=== PATIENT | female | born 1995 | race Caucasian/White ===

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

== ENCOUNTER 2017-01-01 22:30 | Outpatient (CLI) | payer MEDICAID ==
[2017-01-25] MEDS ORDERED: MOTRIN-DPS800 MG PO (11:46)
[2017-01-25] MEDS ORDERED: LEVOTHYROXINE112 MCG PO (11:46)
[2017-01-25] MEDS ORDERED: NIPPLECREAM TP (11:46)
[2017-01-25] MEDS ORDERED: PRENATAL VIT1 TAB PO (11:46)
== END 2017-01-01 23:50 | disposition home or self-care (01) ==
LOC: BC 22:30 → 2LDRP 22:30 → BC 23:50
DX: O99.89 Other specified diseases and conditions complicating pregnancy, childbirth and the puerperium (principal); R10.2 Pelvic and perineal pain; Z3A.37 37 weeks gestation of pregnancy

== ENCOUNTER 2017-01-06 13:15 | Outpatient (CLI) | payer MEDICAID ==
[2017-01-25] MEDS ORDERED: NIPPLECREAM TP (11:46)
[2017-01-25] MEDS ORDERED: PRENATAL VIT1 TAB PO (11:46)
[2017-01-25] MEDS ORDERED: LEVOTHYROXINE112 MCG PO (11:46)
[2017-01-25] MEDS ORDERED: MOTRIN-DPS800 MG PO (11:46)
== END 2017-01-06 14:20 | disposition home or self-care (01) ==
LOC: BC 13:15 → 2LDRP 13:15 → BC 14:20
DX: O47.1 False labor at or after 37 completed weeks of gestation (principal); Z3A.38 38 weeks gestation of pregnancy

== ENCOUNTER 2017-01-14 01:00 | Outpatient (CLI) | payer MEDICAID ==
[2017-01-25] MEDS ORDERED: MOTRIN-DPS800 MG PO (11:46)
[2017-01-25] MEDS ORDERED: NIPPLECREAM TP (11:46)
[2017-01-25] MEDS ORDERED: LEVOTHYROXINE112 MCG PO (11:46)
[2017-01-25] MEDS ORDERED: PRENATAL VIT1 TAB PO (11:46)
== END 2017-01-14 02:10 | disposition home or self-care (01) ==
LOC: 2LDRP 01:00 → BC 01:00 → SSS 01-18 15:50 → BC 01-18 16:51
DX: O99.89 Other specified diseases and conditions complicating pregnancy, childbirth and the puerperium (principal); R51 Headache; Z3A.39 39 weeks gestation of pregnancy

== ENCOUNTER 2017-01-21 18:30 | Inpatient (IN) | payer MEDICAID ==
[~2017-01-21] VITALS: Ht 157.5 cm; Wt 85.7 kg
--- NOTE | ~2017-01-21 | HP ---
ADMIT: 01/21/2017 RM/LOC: 221 [facility] MR#: [id number] [address] [place], [place] [address] RACHEL SPRAGUE [address] [place] [address] History and Physical SEX: F AGE: 21 : 1995 DATE OF SERVICE: CHIEF COMPLAINT: Induction of labor for post dates. HISTORY OF PRESENT ILLNESS: Rachel is a very pleasant, 21-year-old, 1, para 0 with an intrauterine at 40 weeks and 4/7 days, presented to Labor and Delivery last night for complaints of induction of labor for post dates. Her has been followed from approximately 10 weeks, and she has had good care and followup. Her has been complicated with hypothyroidism that has been well treated, as well as positive chlamydia infection early on in the post treatment and post check for cures. There have been no other major events with care. The patient presented last night for induction of labor. Misoprostol x 2 has been placed. The patient had spontaneous rupture of membranes at approximately 0130 hours this morning. Clear fluid noted. The patient has just received her epidural. She is comfortable. She has no complaints at this time. PAST MEDICAL HISTORY: Includes: 1. Hypothyroidism. 2. History of kidney stones. 3. History of chlamydia post treatment. PAST SURGICAL HISTORY: Two eye surgeries for cataracts at age 10 or 12. LABORATORY DATA: Blood type A positive, antibody negative, serology nonreactive, rubella immune, GBS negative, HIV negative, GC/Chlamydia negative, hepatitis B surface antigen negative. MEDICATIONS: Include: 1. vitamin. 2. Levothyroxine 112 mcg daily. ALLERGIES: NO KNOWN DRUG ALLERGIES. FAMILY HISTORY: There is asthma, diabetes. SOCIAL HISTORY: Noncontributory. No alcohol, drug, or tobacco use. REVIEW OF SYSTEMS: A 10-point review of systems obtained, per HPI otherwise negative. PHYSICAL EXAMINATION: VITAL SIGNS: Blood pressure 111/73, pulse 100, respirations 16, temperature 97.2. GENERAL: Alert and oriented x3. Appears comfortable. HEENT: Pupils equal, round, and reactive. Extraocular muscles intact. Throat clear. Trachea midline. HEART: Regular rate and rhythm. ADMIT: 01/21/2017 RM/LOC: 221 [facility] MR#: [id number] [address] [facility] [address] [place], [place] [address] RACHEL SPRAGUE M [address] [facility] [address] [place] [address] History and Physical SEX: F AGE: 21 : 1995 LUNGS: Clear to auscultation. ABDOMEN: Gravid. Soft. EXTREMITIES: Without any significant edema. Tocometer shows contractions every 1 to 3 minutes. Cervical check showed 2.5 cm, 70% effaced, -1 station. heart tones category 1. IUPC placed. Contractions appear adequate. LABORATORY DATA: Urine protein and glucose were negative. Hemoglobin was 13.5, and platelets were 216. ASSESSMENT: This is a 21-year-old, 1, para 0, with; 1. Intrauterine at 40 weeks and 4/7 days. 2. Induction of labor for post dates. 3. Hypothyroidism. 4. Group B strep negative. 5. History of chlamydia infection early , post treatment and post test for cure. PLAN: IUPC is placed. The patient currently on low-dose Pitocin protocol. Contractions adequate. We will continue with close monitoring and active management of labor. The patient is aware of all the risks, benefits, and alternatives with induction of labor including increased risk for and she was agreeable for this. Raheem Thornton MD/ alexx JOB #: [id number] CC: Raheem Thornton MD, Attending Physician Raheem Thornton MD, Family Physician
--- NOTE | ~2017-01-21 | OR ---
ADMIT: 01/21/2017 RM/LOC: 221 [facility] MR#: [id number] [address] [facility] [address] [place], [place] [address] ORIN SPRAGUE [address] [place] [address] Operative/Delivery Room Report SEX: F AGE: 21 : 1995 SURGERY DATE: 01/22/2017 SURGEON: Raheem Thornton MD PREOPERATIVE DIAGNOSES: 1. Intrauterine at 40 weeks and 4/7 days. 2. Induction of labor for post dates. 3. GBS negative. 4. Hypothyroidism, well treated. 5. History of chlamydia post treatment and care. POSTOPERATIVE DIAGNOSES: 1. Status post spontaneous vaginal delivery. 2. Status post right vaginal sidewall laceration repair. 3. Intrauterine at 40 weeks and 4/7 days. 4. Induction of labor for post dates. 5. GBS negative. 6. Hypothyroidism, well treated. 7. History of chlamydia post treatment and care. PROCEDURES: 1. Spontaneous vaginal delivery. 2. Repair of right vaginal sidewall laceration. 3. Epidural removal. FINDINGS: 1. A live-born term infant female born at 1505 hours with a weight of 7 pounds 7 ounces (3340 g) and Apgars of 6 and 9 at one and five minutes respectively. 2. An intact placenta with three-vessel cord. ANESTHESIA: Epidural. ESTIMATED BLOOD LOSS: 350 mL. COMPLICATIONS: None immediate. INDICATIONS FOR PROCEDURE: Please refer to the dictated H and P. Briefly, the patient is a pleasant 21-year-old, 1, para 0 with an intrauterine at 40 weeks and 4/7 days, who presented the night prior to delivery for induction of labor for post dates. Her has been complicated with hypothyroidism and positive chlamydia post treatment. Hypothyroidism is being well treated. Has been following regularly for care since approximately 10 weeks' gestation. 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 Dilated to approximately 2 cm. Started on Pitocin, low-dose protocol. IUPC placed. Prior to this, she had ruptured at approximately 0130 hours the morning of delivery. Clear fluid. The patient then was continued to labor. Epidural was placed without complications. The patient was found to be complete at ADMIT: 01/21/2017 RM/LOC: 221 [facility] MR#: [id number] [address] [facility] [address] [place], [place] [address] ORIN SPRAGUE M [address] [place] [address] Operative/Delivery Room Report SEX: F AGE: 21 : 1995 1429 hours and started pushing bringing the infant's vertex to the perineum. Continuous maternal monitoring was done throughout and was reassuring. DESCRIPTION OF PROCEDURE: The patient was in the dorsal lithotomy position, draped in the usual fashion. Infant's head noted to be on the perineum. She was asked to push, delivering the 's head in the CHARLIE position. After restitution of the head, a nuchal cord was noted, but after delivery of the right shoulder followed by the left shoulder and remainder of the infant, delivered without difficulty through the nuchal and body cord. This were then reduced. noted to be crying. Held below maternal pelvis for approximately 30 to 45 seconds for delayed clamping. was stimulated. Transferred to maternal abdomen, where nursing personnel were in attendance. Infant was bulb suctioned mouth and nares. The cord was clamped x2 and cut by the father. Cord blood obtained. Placenta delivered in less than 5 minutes intact. Twenty units of Pitocin was started in IV bag to help firm the uterus. Attention was then turned to the cervix which was noted to be free of laceration. Vaginal vault did show right sidewall tear. This was repaired with 3-0 Vicryl stitch and a single figure of eight in the usual fashion. Good hemostasis noted. Attention turned to the perineum which was noted to be free of laceration. There was a slight mild non bleeding right labial laceration tear as well, and this was not repaired as it was not bleeding. There were no other major complications with the delivery. Sponge and needle count was correct. was in stable condition with mom recovering. Epidural catheter was removed without difficulty. Entire length catheter was noted in blue tip on end. Raheem Thornton MD/ alexx JOB #: [id number] CC: Raheem Thornton MD, Attending Physician Raheem Thornton MD, Family Physician
[2017-01-25] MEDS ORDERED: NIPPLECREAM TP (11:46)
[2017-01-25] MEDS ORDERED: LEVOTHYROXINE112 MCG PO (11:46)
[2017-01-25] MEDS ORDERED: MOTRIN-DPS800 MG PO (11:46)
[2017-01-25] MEDS ORDERED: PRENATAL VIT1 TAB PO (11:46)
--- NOTE | 2017-02-13 08:20 | DS ---
ADMIT: 01/21/2017 RM/LOC: 221 [facility] MR#: [id number] [address] [facility] [id number] [place], [place] [address] ORIN SPRAGUE [address] [place] [address] General Discharge Summary SEX: F AGE: 21 : 1995 ADMISSION DATE: 01/21/2017 DISCHARGE DATE: 01/24/2017 FINAL DIAGNOSES: 1. Induction of labor for post dates at 40 weeks and 4 days. 2. Status post spontaneous vaginal delivery on 01/23/2017, live-born infant female born at 1505 hours with a weight of 7 pounds 7 ounces and scores of 6 and 9 at 1 and 5 minutes respectively. 3. Hypothyroidism. 4. Group B Strep negative. Raheem Thornton MD/ modl JOB #: [id number] CC: Raheem Thornton MD, Attending Physician Raheem Thornton MD, Family Physician
== END 2017-01-24 16:25 | disposition home or self-care (01) | DRG 775 ==
LOC: BC 18:30 → 2LDRP 18:30
PROVIDERS: ADMIT Family Medicine
PROC: 3E033VJ Introduction of Other Hormone into Peripheral Vein, Percutaneous Approach (ICD-10-PCS; principal; 2017-01-22)
PROC: 0UQGXZZ Repair Vagina, External Approach (ICD-10-PCS; principal; 2017-01-22)
PROC: 3E0P7GC Introduction of Other Therapeutic Substance into Female Reproductive, Via Natural or Artificial Opening (ICD-10-PCS; principal; 2017-01-22)
PROC: 10E0XZZ Delivery of Products of Conception, External Approach (ICD-10-PCS; principal; 2017-01-22)
DX: O48.0 Post-term pregnancy (principal); E03.9 Hypothyroidism, unspecified; O69.81X0 Labor and delivery complicated by cord around neck, without compression, not applicable or unspecified; O99.284 Endocrine, nutritional and metabolic diseases complicating childbirth; O70.9 Perineal laceration during delivery, unspecified; Z87.442 Personal history of urinary calculi; Z3A.40 40 weeks gestation of pregnancy; Z37.0 Single live birth